=== PATIENT | female | born 1950 | race Caucasian/White ===

== ENCOUNTER → 2019-08-31 13:44 | Outpatient (CLI) | payer OTHER, SELFPAY ==
--- NOTE | 2019-08-31 | DI.MRI.S_ITS ---
PROCEDURE: MR LUMBAR SPINE WO CON INDICATIONS: Lumbago w/ sciatica left side TECHNIQUE: Noncontrast sagittal T1 spin echo and T2 fast echo, sagittal STIR, axial T1 and T2 fast spin echo through the lumbar spine. In cases with scoliosis, additional coronal T2 fast spin echo may be performed. COMPARISON: None. FINDINGS: Image quality: Excellent. Alignment and Curvature: No plain films are available for comparison, for numbering purposes. Thus, for the purposes of this examination, 5 lumbar type vertebral bodies will be presumed, as denoted on the montage panel. This should be confirmed and correlated with plain films, prior to any lumbar spinal intervention. There is mild grade 1 anterolisthesis of L4 on L5. Moderate one retrolisthesis of L5 on S1. Bone Marrow: Marrow is of normal overall signal. No acute vertebral body compression fractures. Mild reactive signal within the endplates adjacent to the L2-L3, L3 L4, and L5-S1 intervertebral discs. Spinal Cord: Conus medullaris terminates at the mid L1 level. Visualized cord demonstrates normal signal and size. Paraspinous Soft Tissues: No paravertebral masses. L1-L2: Mild disc desiccation. Mild facet and ligament flavum hypertrophy. No significant canal, nor foraminal stenosis. L2-L3: Mild disc desiccation. Mild facet and ligamentum flavum hypertrophy. No significant canal, nor foraminal stenosis. L3-L4: Mild disc height loss and desiccation. Mild diffuse disc bulge. Mild facet and ligament flavum hypertrophy. Mild canal stenosis. Mild bilateral foraminal stenosis. L4-L5: Mild disc height loss and desiccation. Mild diffuse disc bulge. Moderate facet hypertrophy. Mild ligamentum flavum hypertrophy. Mild canal stenosis. Mild subarticular and foraminal stenosis bilaterally. L5-S1: Mild disc height loss and desiccation. Mild diffuse disc bulge. Mild bilateral facet hypertrophy. Mild canal stenosis. Mild bilateral foraminal stenosis. IMPRESSION: 1. Multilevel degenerative disc and facet disease, as well as ligamentum flavum hypertrophy and epidural lipomatosis. 2. Mild multilevel canal and foraminal stenoses. 3. 5 lumbar type vertebral bodies were presumed for the current report. Plain films of the lumbar spine are recommended for confirmation, prior to any lumbar spinal intervention. Dictated by: Muna Devi M.D. on 08/31/2019 at 15:41 Approved by: Muna Devi M.D. on 08/31/2019 at 15:43
== END ==
PROVIDERS: Visit Provider Nurse Practitioner Family
DX: M51.16 Intervertebral disc disorders with radiculopathy, lumbar region (principal); M51.17 Intervertebral disc disorders with radiculopathy, lumbosacral region; M48.061 Spinal stenosis, lumbar region without neurogenic claudication; M48.07 Spinal stenosis, lumbosacral region; E88.2 Lipomatosis, not elsewhere classified
CPT/HCPCS: 72148

== ENCOUNTER → 2023-05-25 11:31 | Outpatient (CLI) | payer MEDICARE, SELFPAY ==
--- NOTE | 2023-05-25 11:37 | DI.MRI.S_ITS ---
PROCEDURE: MR THORACIC SPINE WO CON INDICATIONS: Pain in thoracic spine TECHNIQUE: Noncontrast sagittal T1 spine echo and T2 fast spin echo, sagittal STIR, and T2 fast spin echo through the thoracic spine. COMPARISON: None. FINDINGS: Image quality: Excellent. Alignment and Curvature: There is normal bony alignment. Bone Marrow: Marrow is of normal overall signal. No acute vertebral body compression fractures. Discs: C7-T1 through C6-7 demonstrate no significant disc bulge. No foraminal or central canal stenosis. T7-8: Left foraminal disc bulge with annular tear. No foraminal or central canal stenosis. T8-9: Right paracentral disc protrusion indents the anterior thecal sac and. Smaller protrusion on the left. These cause mild central canal stenosis. The foramina are patent. T9-10 and T10-11: Mild disc bulges cause minimal foraminal stenosis. The central canal is patent. T11-T12: Disc space narrowing with endplate degenerative changes and a diffuse disc bulge and facet hypertrophy. Moderate left foraminal stenosis. The right foramen is patent. The central canal has mild stenosis. T12-L1: No significant disc bulge. The foramina and central canal are patent. Spinal Cord: Visualized spinal cord is normal in size and signal. Paraspinous Soft Tissues: No paravertebral masses. Miscellaneous: On axial images, central canal and foramina appear widely patent at all scanned levels. IMPRESSION: 1. Multilevel degenerative changes of the thoracic spine causing foraminal and central canal stenosis as detailed above. 2. No acute abnormality. 3. No abnormal signal of the thoracic cord. Dictated by: Joe Guerrero M.D. on 05/25/2023 at 13:40 Approved by: Joe Guerrero M.D. on 05/25/2023 at 13:50
== END ==
PROVIDERS: PCP Family Medicine; Referring Provider Family Medicine; Visit Provider Family Medicine
DX: M47.814 Spondylosis without myelopathy or radiculopathy, thoracic region (principal); M48.04 Spinal stenosis, thoracic region; M54.6 Pain in thoracic spine
CPT/HCPCS: 72146

== ENCOUNTER 2024-10-18 08:48 | Outpatient (CLI) | payer MEDICARE, SELFPAY ==
[2024-10-18] VITALS (10 sets, daily range): BP systolic 115–162; BP diastolic 56–71; PULSE 50–59; RESP 10–20; TEMP 37; O2SAT 98–100
--- NOTE | 2024-10-18 08:50 | DI.RAD.S_ITS ---
PROCEDURE: PAIN C/T TRANFORAMINAL INJECT INDICATIONS: THORACIC RADICULOPATHY COMPARISON: None. FINDINGS/IMPRESSION: Fluoroscopic spot filming was performed to verify placement of spinal needles at the right T8-9 level(s), as labeled on the films. Appropriate location(s) of the needle tip(s) was confirmed by injection of iodinated contrast. Dictated by: Cory Alejo M.D. on 10/18/2024 at 13:05 Approved by: Cory Alejo M.D. on 10/18/2024 at 13:05
[2024-10-18] MEDS: MIDAZOLAM 2 MG/2 ML VIAL 1 MG IV ×2 (10:16→10:21)
[2024-10-18] MEDS: iopamidoL 15 ML VIAL 3 ML INJ (10:26)
[2024-10-18] MEDS: DEXAMETHASONE 10 MG/ML VIAL 20 MG INJ (10:27)
[2024-10-18] MEDS: BUPIVACAINE 0.25% (PF) VIAL 2 ML INJ (10:27)
--- NOTE | 2024-10-19 13:07 | P.PCN_ITS ---
Date/Time/Diagnoses Date of procedure: 10/18/24 Time of procedure: 10:22 Pre-procedure diagnosis: 1. FORAMINAL STENOSIS WITH LE SYMPTOMS Post-procedure diagnosis: same Procedure Notes Procedure: 1. FLUOROSCOPICALLY GUIDED CONTRAST CONTROLLED TRANSFORAMINAL EPIDURAL STEROID INJECTION - RIGHT T8/9 TFESI Indications: Nina is referred by Dr. Patel for treatment of Foraminal Stenosis with Right thoracic Symptoms Physician: Juve Thompson Total Fluoroscopy time (seconds): 12 Total sedation minutes: 19 Complications: none Procedure in detail & Post-procedure care: FINDINGS Foraminal Nerve Root Compression secondary to disc disease and facet hypertrophy DESCRIPTION OF PROCEDURE Following review of allergy and review of potential side effects and complications, including, but not necessarily limited to, infection, allergic reaction, local tissue breakdown, stroke, temporary or permanent nerve injury, paralysis, and possible , the patient indicated that the patient understood and agreed to proceed. An informed consent document was signed by the patient, witnessed by a nurse, and placed in the patient's chart. Additionally, other treatment options including medications, modalities, and physical therapy were reviewed with the patient. After review of previous anaesthesic history and IV conscious sedation the patient was deemed safe to proceed with today?s procedure with IV conscious sedation as ASA class II designation. Safety time-out was performed to confirm patient ID, procedure to be performed and site of procedure. IV sedation was accomplished with a combination of 2mg of Versed was administered by the RN after DO order, titrated to patient comfort during the course of the procedure while the patient remained responsive to all verbal commands In the prone position following sterile prep and drape of the lumbar region, the right T8-9 posterior neuroforamen was identified fluoroscopically. The skin was anesthetized via a 25-gauge 1.5-inch needle with 1% lidocaine solution. At this point, a 25-gauge 3.5-inch spinal needle was atraumatically introduced and advanced under fluoroscopic guidance through the posterior right T8-9 neuroforamen to approximately the anterior aspect of the canal. Depth was confirmed on lateral view. Following negative aspiration, injection of approximately 1.5cc of Isovue 200 under live fluoroscopy in the AP view confirmed excellent flow along the nerve root, into the epidural space without vascular or intrathecal uptake observed Radiological data, including multiple fluoroscopic views reveal the needle pl acement in the right T8/9 posterior neuroforamen. Subsequent views show flow of contrast material flowing superiorly and inferiorly along the nerve root confirming epidural flow. Subsequently, a test dose of 1.5cc of 1% lidocaine solution was administered and patient was observed for signs or symptoms of complications, including abdominal pain, shortness of breath, bilateral upper or lower extremity weakness, nausea and vomiting, prior to steroid injection. At this point, a total of 2cc or 20mg of dexamethasone was injected without incident. The procedure tolerated the procedure well without signs or symptoms of complications prior to transfer to the recovery area continued monitoring without incident. The patient was then transferred to the recovery area where they were observed for an appropriate time after the injection. The patient reported a VAS score of 7 prior to the procedure and a post- procedure VAS of 0. POST OP INSTRUCTIONS The patient was provided a Pain Log to continue to record their response to the target-specific procedure prior to follow-up visit with their referring physician. Additionally, specific post-injection care instructions and a contact number to our office were provided if concerns arise regarding possible complications associated with the procedure are suspected.
== END 2024-10-18 11:05 | disposition home or self-care (01) ==
PROVIDERS: PCP Family Medicine; Referring Provider Physical Medicine & Rehabilitation; Visit Provider Physical Medicine & Rehabilitation
DX: M48.04 Spinal stenosis, thoracic region; M51.14 Intervertebral disc disorders with radiculopathy, thoracic region; M47.24 Other spondylosis with radiculopathy, thoracic region
CPT/HCPCS: 64479; 99152; J1100; J2250; J3490

== ENCOUNTER → 2024-12-26 11:47 | Outpatient (CLI) | payer MEDICARE, OTHER, SELFPAY ==
--- NOTE | 2024-12-26 11:49 | DI.RAD.S_ITS ---
PROCEDURE: XR SHOULDER RT MIN 2V INDICATIONS: Right AC joint djd TECHNIQUE: 3 views of the shoulder were acquired. COMPARISON: None. FINDINGS: Bones: No fractures or dislocations. No suspicious bony lesions. Visualized ribs appear intact. Soft tissues: There is calcifications adjacent to the humeral head suggesting a calcific tendinitis. IMPRESSION: Right rotator cuff calcific tendinitis. Dictated by: Carmen Shea M.D. on 12/26/2024 at 12:42 Approved by: Carmen Shea M.D. on 12/26/2024 at 13:43
== END ==
PROVIDERS: PCP Family Medicine; Referring Provider Physical Medicine & Rehabilitation; Visit Provider Physical Medicine & Rehabilitation
DX: M75.41 Impingement syndrome of right shoulder (principal); M75.31 Calcific tendinitis of right shoulder
CPT/HCPCS: 73030